=== PATIENT | female | born 1940 | race Caucasian/White ===

== ENCOUNTER 2024-07-16 09:48 | Outpatient (CLI) | payer MEDICARE, BC | END 2024-07-16 09:49 | disposition home or self-care (01) | LOC: SCSMRI 09:48 | PROVIDERS: ATTEND Internal Medicine | DX: F99 Mental disorder, not otherwise specified (principal); D32.9 Benign neoplasm of meninges, unspecified; I67.89 Other cerebrovascular disease; I61.1 Nontraumatic intracerebral hemorrhage in hemisphere, cortical; R90.82 White matter disease, unspecified | CPT/HCPCS: 70553; 76376 ==